=== PATIENT | male | born 1990 | race Caucasian/White ===

== ENCOUNTER 2017-12-06 04:57 | Emergency (ER) | payer OTHER ==
[~2017-12-06] VITALS: Ht 180.3 cm; Wt 68.0 kg
[2017-12-06] MEDS ORDERED: Promethazine HCl 25 MG in NS 55 ML IVPB ONE (05:15)
[2017-12-06] MEDS ORDERED: Ketorolac 30mg Inj IV ONE (05:15)
[2017-12-06 05:43] LABS: BASOPHILS % (AUTO) 1.3 % (0.0-2.0); EOSINOPHILS % (AUTO) 0.7 % (0.0-3.0); HEMATOCRIT 48.8 % (42.0-52.0); HEMOGLOBIN 16.5 G/DL (14.2-18.0); LYMPHOCYTES % (AUTO) 20.6 % (20.0-45.0); MEAN CORPUSCULAR VOLUME 85 FL (80-99); MONOCYTES % (AUTO) 5.7 % (1.0-10.0); NEUTROPHILS % (AUTO) 71.7 % (45.0-75.0); PLATELET COUNT 236 K/UL (150-450); RED BLOOD COUNT 5.73 M/UL (4.70-6.10); RED CELL DISTRIBUTION WIDTH 10.2 % (11.6-14.8)
[2017-12-06] MEDS ORDERED: Morphine Sulfate 4mg/ml Inj IVP ONE (05:45)
--- NOTE | 2017-12-06 05:45 | Emergency Room Report ---
History of Present Illness General Chief Complaint: Headache Source: Patient Present Illness HPI Is a 27-year-old male with history of migraine the past. Never had to go to the hospital for it. He present chief complaint of headache the front of his head. Onset was acute and occurred about an hour or so before arrival. He has multiple episode vomiting. Unable to keep anything down. No diarrhea. No fever or chills. He normally get migraine headache but not this bad. He also complaining of intermittent numbness to his whole left side of the face including the forehead and fingers. No focal deficit. No slurred speech. Allergies: Coded Allergies: Dust (Verified Allergy, Unknown, 12/06/17) Lily Tree (Verified Allergy, Unknown, 12/06/17) Patient History Past Medical History: see triage record, old chart reviewed Past Surgical History: none Pertinent Family History: none Social History: Denies: smoking Immunizations: other Reviewed Nursing Documentation: PMH: Agreed; PSxH: Agreed Nursing Documentation-PMH Past Medical History: No History, Except For Review of Systems Eye: Denies: eye pain, blurred vision ENT: Denies: ear pain, nose congestion, throat swelling Respiratory: Denies: cough, shortness of breath Cardiovascular: Denies: chest pain, palpitations Gastrointestinal: Denies: abdominal pain, diarrhea, nausea, vomiting Musculoskeletal: Denies: back pain, joint pain Skin: Denies: rash Neurological: Reports: headache; Denies: numbness Endocrine: Denies: increased thirst, increased urine Hematologic/Lymphatic: Denies: easy bruising All Other Systems: negative except mentioned in HPI Physical Exam Vital Signs Date Time Temp Pulse Resp B/P (MAP) Pulse Ox O2 Delivery O2 Flow Rate FiO2 12/06/17 04:58 97.0 85 16 116/78 98 Room Air 97.0 vitals normal Sp02 EP Interpretation: reviewed, normal General Appearance: well appearing, no apparent distress, alert Head: normocephalic, atraumatic Eyes: bilateral eye PERRL, bilateral eye EOMI ENT: hearing grossly normal, normal pharynx Neck: full range of motion, supple, no meningismus Respiratory: chest non-tender, lungs clear, normal breath sounds Cardiovascular #1: regular rate, rhythm, no murmur Gastrointestinal: normal bowel sounds, non tender, no mass, no organomegaly, no bruit, non-distended Musculoskeletal: back normal, gait/station normal, normal range of motion Neurologic: alert, oriented x3 Psychiatric: mood/affect normal Skin: warm/dry Medical Decision Making Diagnostic Impression: Primary Impression: Headache Qualified Codes: R51 - Headache ER Course Patient presents with acute headache. No evidence of TIA or CVA. No evidence of meningitis or neoplastic process. No risk factor for subarachnoid hemorrhage. No family history of aneurysmal bleed. His headache is improving. Once better, can be DC home. Lab Results Impression labs normal CT/MRI/US Diagnostic Results CT/MRI/US Diagnostic Results : Imaging Test Ordered: CT head Impression negative per radiologist Last Vital Signs Date Time Temp Pulse Resp B/P (MAP) Pulse Ox O2 Delivery O2 Flow Rate FiO2 12/06/17 04:58 97.0 85 16 116/78 98 Room Air 97.0 Status: improved Disposition: HOME, SELF-CARE Condition: Stable Scripts Ibuprofen* (MOTRIN*) 600 Mg Tablet 600 MG ORAL THREE TIMES A DAY, #30 TAB 0 Refills Prov: JORGE QUIGLEY M.D. 12/06/17 Referrals: [facility] (PCP) Patient Instructions: General Headache Without Cause Additional Instructions: Follow-up with your Dr. in 2 to 3 days if not better. You may need an MRI if symptoms don't improve or worsen. Return if headache doesn't improve or worsen. JORGE QUIGLEY M.D. December 06, 2017 05:45
[2017-12-06 05:48] VITALS: BP 113/51
[2017-12-06 05:50] LABS: ANION GAP 16 mmol/L (5-15); BLOOD UREA NITROGEN 17 mg/dL (7-18); CALCIUM 9.9 MG/DL (8.5-10.1); CARBON DIOXIDE 24 MMOL/L (21-32); CHLORIDE 101 MMOL/L (98-107); CREATININE 1.1 MG/DL (0.55-1.30); POTASSIUM 3.1 MMOL/L (3.5-5.1); SODIUM 141 MMOL/L (136-145)
[2017-12-06] MEDS ORDERED: IBUPROFEN600 MG ORAL (06:18)
[2017-12-06] MEDS ORDERED: DiphenhydrAMINE 50mg/ml Inj IVP ONE (07:00)
[2017-12-06] MEDS ORDERED: Metoclopramide 10mg/2ml Inj IVP ONE (07:00)
[2017-12-06 09:31] VITALS: BP 106/54
--- NOTE | 2017-12-06 09:42 | Diagnostic Imaging Report ---
Indication: Severe headache for 4 hours Technique: Continuous helical CT scanning of the head was performed without intravenous contrast material. Axial and coronal 5 mm sections were generated. Radiation dose was minimized using automated exposure control Dose: Total Dose Length Product - DLP 1425.[address] Dose Index - CTDIvol(s) 70.38 mGy. Comparison: none Findings: The ventricular system is normal in size and configuration. There is no shift of midline structures. No abnormal extra-axial fluid collections are noted. There is no evidence of intracerebral bleeding. No other abnormal high or low density areas are noted within the brain. Intact calvarium. Visualized orbits and sinuses are unremarkable Impression: Normal CT scan of the head without contrast material. . This agrees with the preliminary interpretation provided overnight by [facility]. The CT scanner at [facility] is accredited by the [employer] and the scans are performed using protocols designed to limit radiation exposure to as low as reasonably achievable to attain images of sufficient resolution adequate for diagnostic evaluation.
[2017-12-06 10:15] VITALS: BP 106/54
== END 2017-12-06 10:15 | disposition home or self-care (01) ==
LOC: EDBD 04:57 → EMR 05:07 → EDBEDREQ 07:19 → EMR 10:15
DX: R51 Headache (principal)
CPT/HCPCS: 36415; 70450; 80048; 85025; 96374; 96375; 99284; J1200; J1885; J2270; J2550; J2765